=== PATIENT | female | born 1945 | race Caucasian/White ===

== ENCOUNTER 2018-05-05 11:06 | Inpatient (IN) | payer MEDICARE, OTHER ==
[2018-05-05 11:49] VITALS: BMI 97.0
[2018-05-05] MEDS ORDERED: traMADol HCL 50 MG TABLET PO SCH (13:00)
[2018-05-05] MEDS ORDERED: DIPHENHYDRAMINE HCL 25 MG/10 ML UD CUP PO SCH (13:00)
--- NOTE | 2018-05-05 13:46 | History and Physical Report ---
History of Present Illnes - History of Present Illness Reason for Visit: Right total knee replacement History of Present Illness: This is a 72 year old female admitted 3 days after having a right total knee replacement. Her surgery was done on Monday by Dr. Sosa at [facility]. Her postoperative course has been unremarkable. Her pain is well controlled. 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: Other Gastrointestinal: Constipation Psych: denies: Addictions Musculoskeletal: Osteoarthritis Renal/: denies: Chronic renal insuff, Acute renal failure - Past Surgical History Past Surgical History: Cholecystectomy, Other (left rotator cuff surgery) - Past Social History Smoke: Quit (at time of surgery) Alcohol: None Drugs: None Lives: Alone Domestic Violence: Negative - Health Maintenance Health Maintenance: Cholesterol Influenza Vaccine: Current for this Influenza Season Pneumonia Vaccine: Yes Resuscitation Status: Resusciation Status Resuscitation Status Full Code - Unable to Obtain History Unable to Obtain: No Review of Systems - Review of Systems Constitutional: negative: Fever, Chills, Sweats Eyes: negative: pain, vision change, conjunctivae inflammation ENT: negative: Ear Pain, Ear Discharge Respiratory: Other. negative: Cough, Dry, Shortness of Breath Cardiovascular: negative: Chest Pain, Palpitations, Orthopnea Gastrointestinal: negative: Nausea, Vomiting Genitourinary: negative: Dysuria, Frequency Musculoskeletal: Leg Pain (left knee). negative: Neck Pain, Shoulder Pain, Arm Pain Skin: negative: Rash, Lesions, Jaundice Neurological: negative: Weakness, Numbness - Medications/Allergies Allergies/Adverse Reactions: Allergies Allergy/AdvReac Type Severity Reaction Status Date / Time adhesive Allergy Intermediate Blister Verified 05/05/18 12:01 latex Allergy Intermediate Blister Verified 05/05/18 12:03 shrimp Allergy Intermediate Vomiting Verified 05/05/18 12:02 Home Medications: Home Medications Aspirin 325 mg PO DAILY 05/05/18 Atorvastatin Calcium 20 mg PO DAILY 05/05/18 Diphenhydramine HCl [Allergy Medicine] 25 mg PO TID 05/05/18 Docusate Sodium [Stool Softener] 50 mg PO BID 05/05/18 Furosemide [Lasix] 20 mg PO DAILY 05/05/18 Meloxicam 15 mg PO BID 05/05/18 Ropinirole HCl [Requip] 0.25 mg PO HS 05/05/18 Sertraline HCl [Zoloft] 200 mg PO DAILY 05/05/18 Spironolactone 25 mg PO DAILY 05/05/18 Tramadol HCl [Ultram] 50 mg PO Q12H PRN 05/05/18 oxyCODONE HCL [Percolone] 5 mg PO Q4H PRN 05/05/18 Current Inpatient Medications: Current Inpatient Medications Aspirin (Aspirin) 325 mg PO DAILY [facility] Cholecalciferol (Vitamin D-3) 3,000 unit PO DAILY [facility] Diphenhydramine HCl (Benadryl) 25 mg PO TID [facility] Docusate Sodium (Colace) 50 mg PO BID [facility] Furosemide (Lasix) 20 mg PO DAILY [facility] Miscellaneous (Non Form) 1 each PO DAILY [facility] Multivitamins (Tab-A-Nasima) 1 each PO DAILY [facility] Oxycodone HCl (Percolone) 5 mg PO Q6 PRN PRN Reason: Severe Pain Ropinirole HCl (Requip) 0.25 mg PO HS [facility] Sertraline HCl (Zoloft) 100 mg PO DAILY [facility] Spironolactone (Aldactone) 25 mg PO DAILY [facility] Exam - Exam Vital Signs: Vital Signs (72 hours) 05/05/18 11:33 Temperature 98.4 F Respiratory 20 Rate Blood Pressure 116/40 [Left Arm] Blood Pressure 116/40 [Right Arm] O2 Sat by Pulse 92 Oximetry General: Alert, Oriented to Person, Oriented to Place, Oriented to Time, Obese HEENT: Atraumatic, PERRLA, EOMI, Mouth Mucous membr. moist/Stigler, Nose Mucous membr. moist/Stigler. No: Photophobia Neck: No: Stridor, Rigidity Lungs: Clear to auscultation, Normal air movement, Speaks full Sentences. No: Respiratory Distress, Wheezes Cardiovascular: Regular rate, Normal S1, Normal S2 Murmur: No: Systolic Murmur Abdomen: Normal bowel sounds, Soft, No tenderness Genitourinary: No: Other Male Genitourinary: No: Other Female Genitourinary: No: Other Integumentary: Normal, Stigler, Warm, Dry Extremities: Other (Dressing in place over the right anterior knee) Neurological: Normal speech, Strength Equal Bilat Psych/Mental Status: Mental status NL, Mood NL, Appropriate Affect Assessment/Plan - Assessment/Plan (1) History of left knee replacement Status: Acute Current Visit: Yes Assessment: No postoperative complications Plan: OT/PT consults (2) Hyperlipidemia Status: Acute Current Visit: Yes Assessment: Continue Atorvastatin VTE Assessment - RISK FACTOR SCORE VTE RISK FACTOR SCORES: AGE OVER 60 YEARS, ANTICIPATED BED CONFINEMENT OR IMMOBILIZATION > 24 HOURS - RISK VTE MODERATE RISK: SCORE OF 2 (RISK PROXIMAL DVT 2-4%) PROPHYAXIS NEEDED (On Aspirin for DVT prophylaxis per orthopedics)
[2018-05-05] MEDS ORDERED: DOCUSATE SODIUM 100 MG CAPSULE ONE (13:58)
[2018-05-05] MEDS: diphenhydrAMINE HCL 25 MG TABLET PO SCH ×2 (14:20→17:43)
[2018-05-05] MEDS: ATORVASTATIN CALCIUM 80 MG TABLET PO SCH (19:57)
[2018-05-05] MEDS: rOPINIRole HCL 1 MG TABLET PO SCH (19:58)
[2018-05-05] MEDS: traMADol HCL 50 MG TABLET PO SCH (20:00)
[2018-05-05] MEDS ORDERED: DOCUSATE SODIUM 100 MG CAPSULE PO SCH (21:00)
[2018-05-05] MEDS: DOCUSATE SODIUM 100 MG CAPSULE PEG SCH (22:25)
[2018-05-06 07:04] LABS: BASOPHILS % 0.2 (0.0-1.5); MEAN CORPUSCULAR HEMOGLOBIN 31.1 pg (28.0-34.0); MONOCYTES % 6.4 % (0.0-11.0)
[2018-05-06 07:14] LABS: eGFR (Non-African) > 60
[2018-05-06] MEDS: SPIRONOLACTONE 25 MG TABLET PO SCH (09:25)
[2018-05-06] MEDS: DOCUSATE SODIUM 100 MG CAPSULE PEG SCH ×2 (09:25→20:36)
[2018-05-06] MEDS: ASPIRIN 325 MG TABLET PO SCH (09:25)
[2018-05-06] MEDS: diphenhydrAMINE HCL 25 MG TABLET PO SCH ×3 (09:25→17:18)
[2018-05-06] MEDS: MULTIVITAMIN 1 EACH TABLET PO SCH (09:26)
[2018-05-06] MEDS: traMADol HCL 50 MG TABLET PO SCH ×2 (09:26→20:36)
[2018-05-06] MEDS: FUROSEMIDE 20 MG TABLET PO SCH (09:26)
[2018-05-06] MEDS: Non-Formulary 1 EACH PO SCH (09:27)
[2018-05-06] MEDS: CHOLECALCIFEROL (VIT D3) 1,000 UNIT TABLET PO SCH (09:27)
[2018-05-06] MEDS: SERTRALINE HCL 50 MG TABLET PO SCH (09:27)
[2018-05-06] MEDS: oxyCODONE HCL 5 MG TABLET PO PRN (14:24)
[2018-05-06] MEDS: rOPINIRole HCL 1 MG TABLET PO SCH (20:06)
[2018-05-06] MEDS: ATORVASTATIN CALCIUM 80 MG TABLET PO SCH (20:20)
[2018-05-07] MEDS: SPIRONOLACTONE 25 MG TABLET PO SCH (08:59)
[2018-05-07] MEDS: Non-Formulary 1 EACH PO SCH (09:00)
[2018-05-07] MEDS: MULTIVITAMIN 1 EACH TABLET PO SCH (09:02)
[2018-05-07] MEDS: FUROSEMIDE 20 MG TABLET PO SCH (09:02)
[2018-05-07] MEDS: ASPIRIN 325 MG TABLET PO SCH (09:02)
[2018-05-07] MEDS: diphenhydrAMINE HCL 25 MG TABLET PO SCH ×3 (09:02→18:19)
[2018-05-07] MEDS: DOCUSATE SODIUM 100 MG CAPSULE PO SCH ×2 (09:02→20:07)
[2018-05-07] MEDS: traMADol HCL 50 MG TABLET PO SCH ×2 (09:03→20:08)
[2018-05-07] MEDS: CHOLECALCIFEROL (VIT D3) 1,000 UNIT TABLET PO SCH (09:03)
[2018-05-07] MEDS: SERTRALINE HCL 50 MG TABLET PO SCH (09:03)
[2018-05-07] MEDS: oxyCODONE HCL 5 MG TABLET PO PRN (12:05)
[2018-05-07] MEDS: ATORVASTATIN CALCIUM 80 MG TABLET PO SCH (20:05)
[2018-05-07] MEDS: rOPINIRole HCL 1 MG TABLET PO SCH (20:06)
[2018-05-08] MEDS: traMADol HCL 50 MG TABLET PO SCH ×2 (08:46→20:10)
[2018-05-08] MEDS: SERTRALINE HCL 50 MG TABLET PO SCH (09:30)
[2018-05-08] MEDS: DOCUSATE SODIUM 100 MG CAPSULE PO SCH ×2 (09:30→20:10)
[2018-05-08] MEDS: diphenhydrAMINE HCL 25 MG TABLET PO SCH ×3 (09:30→17:49)
[2018-05-08] MEDS: CHOLECALCIFEROL (VIT D3) 1,000 UNIT TABLET PO SCH (09:30)
[2018-05-08] MEDS: MULTIVITAMIN 1 EACH TABLET PO SCH (09:30)
[2018-05-08] MEDS: FUROSEMIDE 20 MG TABLET PO SCH (09:30)
[2018-05-08] MEDS: ASPIRIN 325 MG TABLET PO SCH (09:30)
[2018-05-08] MEDS: SPIRONOLACTONE 25 MG TABLET PO SCH (09:31)
[2018-05-08] MEDS: Non-Formulary 1 EACH PO SCH (09:31)
[2018-05-08] MEDS: ATORVASTATIN CALCIUM 80 MG TABLET PO SCH (20:10)
[2018-05-08] MEDS: rOPINIRole HCL 1 MG TABLET PO SCH (20:10)
[2018-05-09] MEDS: diphenhydrAMINE HCL 25 MG TABLET PO SCH ×3 (08:19→17:58)
[2018-05-09] MEDS: ASPIRIN 325 MG TABLET PO SCH (08:19)
[2018-05-09] MEDS: SPIRONOLACTONE 25 MG TABLET PO SCH (08:19)
[2018-05-09] MEDS: FUROSEMIDE 20 MG TABLET PO SCH (08:19)
[2018-05-09] MEDS: Non-Formulary 1 EACH PO SCH ×2 (08:20→12:59)
[2018-05-09] MEDS: CHOLECALCIFEROL (VIT D3) 1,000 UNIT TABLET PO SCH (08:20)
[2018-05-09] MEDS: MULTIVITAMIN 1 EACH TABLET PO SCH (08:20)
[2018-05-09] MEDS: SERTRALINE HCL 50 MG TABLET PO SCH (08:21)
[2018-05-09] MEDS: DOCUSATE SODIUM 100 MG CAPSULE PO SCH ×2 (08:21→19:59)
[2018-05-09] MEDS: traMADol HCL 50 MG TABLET PO SCH ×2 (08:24→21:02)
[2018-05-09] MEDS: ATORVASTATIN CALCIUM 80 MG TABLET PO SCH (19:59)
[2018-05-09] MEDS: rOPINIRole HCL 1 MG TABLET PO SCH ×2 (20:04→20:06)
[2018-05-10] MEDS: oxyCODONE HCL 5 MG TABLET PO PRN ×2 (01:30→19:54)
[2018-05-10] MEDS: SPIRONOLACTONE 25 MG TABLET PO SCH (08:06)
[2018-05-10] MEDS: MULTIVITAMIN 1 EACH TABLET PO SCH (08:07)
[2018-05-10] MEDS: diphenhydrAMINE HCL 25 MG TABLET PO SCH ×3 (08:07→18:20)
[2018-05-10] MEDS: DOCUSATE SODIUM 100 MG CAPSULE PO SCH ×2 (08:07→19:48)
[2018-05-10] MEDS: Non-Formulary 1 EACH PO SCH (08:07)
[2018-05-10] MEDS: traMADol HCL 50 MG TABLET PO SCH ×2 (08:07→19:49)
[2018-05-10] MEDS: FUROSEMIDE 20 MG TABLET PO SCH (08:07)
[2018-05-10] MEDS: ASPIRIN 325 MG TABLET PO SCH (08:07)
[2018-05-10] MEDS: SERTRALINE HCL 50 MG TABLET PO SCH (08:08)
[2018-05-10] MEDS: CHOLECALCIFEROL (VIT D3) 1,000 UNIT TABLET PO SCH (08:08)
[2018-05-10] MEDS: ATORVASTATIN CALCIUM 80 MG TABLET PO SCH (19:48)
[2018-05-10] MEDS: rOPINIRole HCL 1 MG TABLET PO SCH (19:49)
[2018-05-11] MEDS: traMADol HCL 50 MG TABLET PO SCH ×2 (08:13→20:43)
[2018-05-11] MEDS: DOCUSATE SODIUM 100 MG CAPSULE PO SCH ×2 (08:45→20:33)
[2018-05-11] MEDS: MULTIVITAMIN 1 EACH TABLET PO SCH (08:45)
[2018-05-11] MEDS: diphenhydrAMINE HCL 25 MG TABLET PO SCH ×3 (08:45→18:42)
[2018-05-11] MEDS: FUROSEMIDE 20 MG TABLET PO SCH (08:45)
[2018-05-11] MEDS: SPIRONOLACTONE 25 MG TABLET PO SCH (08:45)
[2018-05-11] MEDS: ASPIRIN 325 MG TABLET PO SCH (08:45)
[2018-05-11] MEDS: SERTRALINE HCL 50 MG TABLET PO SCH (08:45)
[2018-05-11] MEDS: CHOLECALCIFEROL (VIT D3) 1,000 UNIT TABLET PO SCH (08:46)
[2018-05-11] MEDS: Non-Formulary 1 EACH PO SCH (08:46)
[2018-05-11] MEDS: ATORVASTATIN CALCIUM 80 MG TABLET PO SCH (20:35)
[2018-05-11] MEDS: oxyCODONE HCL 5 MG TABLET PO PRN (20:42)
[2018-05-12] MEDS: DOCUSATE SODIUM 100 MG CAPSULE PO SCH ×2 (09:54→20:25)
[2018-05-12] MEDS: CHOLECALCIFEROL (VIT D3) 1,000 UNIT TABLET PO SCH (09:54)
[2018-05-12] MEDS: ASPIRIN 325 MG TABLET PO SCH (09:54)
[2018-05-12] MEDS: SPIRONOLACTONE 25 MG TABLET PO SCH (09:54)
[2018-05-12] MEDS: diphenhydrAMINE HCL 25 MG TABLET PO SCH ×3 (09:54→20:25)
[2018-05-12] MEDS: traMADol HCL 50 MG TABLET PO SCH ×2 (09:55→20:33)
[2018-05-12] MEDS: FUROSEMIDE 20 MG TABLET PO SCH (09:55)
[2018-05-12] MEDS: MULTIVITAMIN 1 EACH TABLET PO SCH (09:55)
[2018-05-12] MEDS: Non-Formulary 1 EACH PO SCH (09:55)
[2018-05-12] MEDS: SERTRALINE HCL 50 MG TABLET PO SCH (09:55)
[2018-05-12] MEDS: ATORVASTATIN CALCIUM 80 MG TABLET PO SCH (20:25)
[2018-05-12] MEDS: rOPINIRole HCL 1 MG TABLET PO SCH (20:32)
[2018-05-13] MEDS: ASPIRIN 325 MG TABLET PO SCH (08:41)
[2018-05-13] MEDS: diphenhydrAMINE HCL 25 MG TABLET PO SCH ×3 (08:41→17:46)
[2018-05-13] MEDS: traMADol HCL 50 MG TABLET PO SCH ×2 (08:41→20:10)
[2018-05-13] MEDS: SPIRONOLACTONE 25 MG TABLET PO SCH (08:41)
[2018-05-13] MEDS: FUROSEMIDE 20 MG TABLET PO SCH (08:42)
[2018-05-13] MEDS: Non-Formulary 1 EACH PO SCH (08:42)
[2018-05-13] MEDS: MULTIVITAMIN 1 EACH TABLET PO SCH (08:42)
[2018-05-13] MEDS: CHOLECALCIFEROL (VIT D3) 1,000 UNIT TABLET PO SCH (08:42)
[2018-05-13] MEDS: SERTRALINE HCL 50 MG TABLET PO SCH (08:42)
[2018-05-13] MEDS: DOCUSATE SODIUM 100 MG CAPSULE PO SCH ×2 (08:43→20:10)
[2018-05-13] MEDS: ATORVASTATIN CALCIUM 80 MG TABLET PO SCH (20:08)
[2018-05-13] MEDS: rOPINIRole HCL 1 MG TABLET PO SCH (20:09)
[2018-05-13] MEDS: oxyCODONE HCL 5 MG TABLET PO PRN (20:11)
[2018-05-14] MEDS: ASPIRIN 325 MG TABLET PO SCH (09:11)
[2018-05-14] MEDS: diphenhydrAMINE HCL 25 MG TABLET PO SCH ×3 (09:12→17:50)
[2018-05-14] MEDS: DOCUSATE SODIUM 100 MG CAPSULE PO SCH ×2 (09:12→19:42)
[2018-05-14] MEDS: FUROSEMIDE 20 MG TABLET PO SCH (09:12)
[2018-05-14] MEDS: Non-Formulary 1 EACH PO SCH (09:12)
[2018-05-14] MEDS: SPIRONOLACTONE 25 MG TABLET PO SCH (09:12)
[2018-05-14] MEDS: traMADol HCL 50 MG TABLET PO SCH ×2 (09:12→19:42)
[2018-05-14] MEDS: SERTRALINE HCL 50 MG TABLET PO SCH (09:13)
[2018-05-14] MEDS: MULTIVITAMIN 1 EACH TABLET PO SCH (09:13)
[2018-05-14] MEDS: CHOLECALCIFEROL (VIT D3) 1,000 UNIT TABLET PO SCH (09:13)
[2018-05-14] MEDS: rOPINIRole HCL 1 MG TABLET PO SCH (19:42)
[2018-05-14] MEDS: ATORVASTATIN CALCIUM 80 MG TABLET PO SCH (19:43)
[2018-05-15] MEDS: DOCUSATE SODIUM 100 MG CAPSULE PO SCH ×2 (09:11→20:09)
[2018-05-15] MEDS: FUROSEMIDE 20 MG TABLET PO SCH (09:11)
[2018-05-15] MEDS: diphenhydrAMINE HCL 25 MG TABLET PO SCH ×3 (09:11→18:07)
[2018-05-15] MEDS: ASPIRIN 325 MG TABLET PO SCH (09:11)
[2018-05-15] MEDS: SERTRALINE HCL 50 MG TABLET PO SCH (09:11)
[2018-05-15] MEDS: MULTIVITAMIN 1 EACH TABLET PO SCH (09:11)
[2018-05-15] MEDS: traMADol HCL 50 MG TABLET PO SCH ×2 (09:11→20:09)
[2018-05-15] MEDS: Non-Formulary 1 EACH PO SCH (09:11)
[2018-05-15] MEDS: SPIRONOLACTONE 25 MG TABLET PO SCH (09:11)
[2018-05-15] MEDS: CHOLECALCIFEROL (VIT D3) 1,000 UNIT TABLET PO SCH (09:11)
[2018-05-15] MEDS: rOPINIRole HCL 1 MG TABLET PO SCH (20:09)
[2018-05-15] MEDS: ATORVASTATIN CALCIUM 80 MG TABLET PO SCH (20:09)
[2018-05-16] MEDS: diphenhydrAMINE HCL 25 MG TABLET PO SCH (08:30)
[2018-05-16] MEDS: SPIRONOLACTONE 25 MG TABLET PO SCH (08:30)
[2018-05-16] MEDS: ASPIRIN 325 MG TABLET PO SCH (08:30)
[2018-05-16] MEDS: FUROSEMIDE 20 MG TABLET PO SCH (08:31)
[2018-05-16] MEDS: DOCUSATE SODIUM 100 MG CAPSULE PO SCH (08:31)
[2018-05-16] MEDS: SERTRALINE HCL 50 MG TABLET PO SCH (08:31)
[2018-05-16] MEDS: CHOLECALCIFEROL (VIT D3) 1,000 UNIT TABLET PO SCH (08:31)
[2018-05-16] MEDS: traMADol HCL 50 MG TABLET PO SCH (08:31)
[2018-05-16] MEDS: MULTIVITAMIN 1 EACH TABLET PO SCH (08:32)
[2018-05-16] MEDS: Non-Formulary 1 EACH PO SCH (08:35)
[2018-05-16 09:37] VITALS: BP 196/69
--- NOTE | 2018-05-16 13:42 | Discharge Summary ---
DATE OF ADMISSION: May 05, 2018 DATE OF DISCHARGE: May 16, 2018 DIAGNOSES ON THIS HOSPITALIZATION: 1. Right total knee replacement. 2. Hyperlipidemia. SUMMARIZATION OF ADMISSION HISTORY AND PHYSICAL: This is a 72-year-old female who was admitted 3 days after having a right total knee replacement at [facility] with Dr. Sosa. Her postoperative course had been unremarkable. Her pain was pretty well controlled when she arrived. She did have to take some oxycodone periodically; however, she had not taken any the last 4 days of her hospitalization. HOSPITAL COURSE: Her hospital course here was unremarkable. She participated actively in therapy and was felt to be ready for discharge to home then on May 16, 2018, with the following medications. MEDICATIONS ON DISCHARGE: 1. Aspirin 325 mg p.o. daily. 2. Lipitor 20 mg p.o. daily. 3. Vitamin D3, 3000 units daily. 4. Colace 100 mg p.o. b.i.d. 5. Lasix 20 mg p.o. daily. 6. Multivitamin 1 p.o. daily. 7. Requip 0.25 mg p.o. at bedtime. 8. Zoloft 100 mg p.o. daily. 9. Aldactone 25 mg p.o. daily. 10. Tramadol 50 mg 1 p.o. every 12 hours. DISCHARGE INSTRUCTIONS: 1. She will follow up with Orthopedics in 10 days, specifically, Dr. Sosa. 2. Regular diet. CONDITION ON DISCHARGE: She is discharged to home in improved condition. [facility]
== END 2018-05-16 14:13 | disposition home or self-care (01) | DRG 93 ==
LOC: SOUTH 11:06
PROVIDERS: ADMIT Family Medicine; ATTEND Family Medicine
DX: R26.89 Other abnormalities of gait and mobility (principal); Z96.651 Presence of right artificial knee joint; I25.10 Atherosclerotic heart disease of native coronary artery without angina pectoris; I50.9 Heart failure, unspecified; J44.9 Chronic obstructive pulmonary disease, unspecified; E78.5 Hyperlipidemia, unspecified
CPT/HCPCS: 36415; 80053; 85025; 97110; 97112; 97116; 97530; 97535; A9270; Q0163